=== PATIENT | male | born 1975 | race Caucasian/White ===

== ENCOUNTER 2019-01-11 10:54 | Emergency (ER) | payer OTHER ==
[~2019-01-11] VITALS: Ht 170.2 cm; Wt 134.3 kg
[2019-01-11 11:03] VITALS: BP 140/80
[2019-01-11] MEDS ORDERED: KETOROLAC 30 MG/1 ML ONE (11:26)
[2019-01-11] MEDS ORDERED: DIAZEPAM 5 MG TABLET ONE (11:26)
[2019-01-11] MEDS ORDERED: KETOROLAC 30 MG/1 ML IM ONE (11:30)
[2019-01-11] MEDS ORDERED: DIAZEPAM 5 MG TABLET PO ONE (11:30)
--- NOTE | 2019-01-11 11:49 | NUR ---
PT MEDICATED PER EMAR FOR PAIN. PT TOLERATED WELL.
--- NOTE | 2019-01-11 11:53 | NUR ---
PT GIVEN DC INSTRUCTIONS AND SCRIPTS. PT EDUCATED REGARDING DC MEDICATIONS. PT AMB TO DC WITH STEADY GAIT. NO ACUTE DISTRESS AT DC.
== END 2019-01-11 11:54 | disposition home or self-care (01) ==
LOC: ED 11:40
DX: S39.012A Strain of muscle, fascia and tendon of lower back, initial encounter (principal); X50.1XXA Overexertion from prolonged static or awkward postures, initial encounter; Y93.89 Activity, other specified; Y92.89 Other specified places as the place of occurrence of the external cause; Y99.8 Other external cause status
CPT/HCPCS: 72110; 96372; 99283; J1885